=== PATIENT | female | born 1955 | race African-American/Black ===

== ENCOUNTER → 2019-06-14 | Outpatient (CLI) | payer OTHER ==
--- NOTE | 2019-06-14 10:46 | RAD ---
EXAM: Right knee, 2 views. HISTORY: Pain. COMPARISON: None. FINDINGS: 2 views of the right knee are obtained. There is medial and patellofemoral compartment spurring. There is trace joint fluid without a significant effusion. There is no fracture, dislocation or subluxation. IMPRESSION: Mild medial and patellofemoral compartment osteoarthritis of the right knee. Electronically signed by: Dinorah Mack MD (06/14/2019 10:43 AM) [id number]
== END | disposition home or self-care (01) ==
LOC: RAD 10:17
PROVIDERS: ATTEND Family Medicine
DX: M17.11 Unilateral primary osteoarthritis, right knee (principal); M76.891 Other specified enthesopathies of right lower limb, excluding foot
CPT/HCPCS: 73560